=== PATIENT | male | born 1980 | race Caucasian/White ===

== ENCOUNTER → 2018-04-10 14:29 | Outpatient (CLI) | payer OTHER, MEDICAID, SELFPAY ==
[2018-04-10 17:22] LABS: Add Manual Diff / Slide Review NO; Basophils Percent Auto 0.4 % (0-2); Eosinophils Percent Auto 1.4 % (2-4); Hematocrit 45.4 % (41-53); Hemoglobin 14.7 g/dL (13.5-17.5); Lymphocytes Percent Auto 30.6 % (25-40); Mean Corpuscular HGB Conc 32.3 % (30-36); Mean Corpuscular Hemoglobin 28.9 PG (26-34); Mean Corpuscular Volume 89.4 fL (80-100); Monocytes Percent Auto 7.1 % (3-14); Neutrophils Absolute Auto 7600 /uL (3000-5900); Neutrophils Percent Auto 60.5 % (50-75); Platelet Count 328 X10^3/uL (150-400); Red Blood Cell Count 5.08 X10^6/uL (4.5-5.9); Red Cell Distribution Width 14.3 % (11.6-14.8); White Blood Cell Count 12.5 X10^3/uL (4.5-11.0)
[2018-04-10 17:43] LABS: Alanine Aminotransferase 25 IU/L (21-72); Albumin 4.8 g/dL (3.5-5.0); Albumin Globulin Ratio 1.7 (1.0-2.8); Alkaline Phosphatase 78 U/L (38-126); Aspartate Aminotransferase 23 IU/L (17-59); BUN Creatinine Ratio 24.3 (6-22); Bilirubin Total 0.5 mg/dL (0.2-1.3); Blood Urea Nitrogen 17 mg/dL (9-20); Calcium 9.3 mg/dL (8.4-10.2); Carbon Dioxide 29 mmol/L (22-32); Chloride 101 mmol/L (98-107); Estimated Glomerular Filt Rate > 60.0 mL/min (>60); Globulin 2.9 g/dL (1.7-4.1); Glucose 88 mg/dL (70-100); HEMOLYSIS < 15 (0-50); Potassium 3.4 mmol/L (3.4-5.1); Sodium 144 mmol/L (137-145); Total Protein 7.7 g/dL (6.3-8.2)
[2018-04-10 17:53] LABS: Erythrocyte Sedimentation Rate 4 MM/HR (0-15)
[2018-04-10 18:03] LABS: C-Reactive Protein Quant < 0.5 mg/dL (<1.0)
[2018-04-10 18:13] LABS: TSH w/ Reflex to FT4 3.18 uIU/mL (0.47-4.68)
[2018-04-13 08:07] LABS: Beef f27 IgG 11.6 mcg/mL (< 2.0); Casein (f78) IgG 6.5 mcg/mL (< 2.0); Codfish f3 IgG 3.1 mcg/mL (< 2.0); Egg White (f1) IgG < 2.0 mcg/mL (< 2.0); Maize/Corn f8 IgG 14.3 mcg/mL (< 2.0); Orange f33 IgG 2.4 mcg/mL (< 2.0); Peanut f13 IgG < 2.0 mcg/mL (< 2.0); Pork f26 IgG 2.4 mcg/mL (< 2.0); Soybean f14 IgG < 2.0 mcg/mL (< 2.0); Wheat (f4) IgG 5.7 mcg/mL (< 2.0)
[2018-04-13 12:57] LABS: (tTG) Ab, IgA < 1 U/mL
== END ==
PROVIDERS: PCP Nurse Practitioner Family; Visit Provider Physician Assistant
DX: R19.7 Diarrhea, unspecified (principal)
CPT/HCPCS: 36415; 80053; 83516; 84443; 85025; 85651; 86001; 86140; 86255

== ENCOUNTER → 2018-04-11 14:13 | Outpatient (CLI) | payer OTHER, MEDICAID, SELFPAY | PROVIDERS: PCP Nurse Practitioner Family; Visit Provider Physician Assistant | DX: R19.7 Diarrhea, unspecified (principal) | CPT/HCPCS: 86677 ==

== ENCOUNTER 2019-01-18 09:03 | Emergency (ER) | payer OTHER, MEDICAID, SELFPAY ==
[2019-01-18 09:23] VITALS: BP 161/106; PULSE 64; RESP 18; TEMP 37.1; O2SAT 100
[2019-01-18 10:11] LABS: Add Manual Diff / Slide Review NO; Basophils Absolute Auto 0 /uL (0-100); Basophils Percent Auto 0.4 % (0-2); Eosinophils Absolute Auto 0 /uL (0-450); Eosinophils Percent Auto 0.2 % (2-4); Hematocrit 44.1 % (41-53); Hemoglobin 15.1 g/dL (13.5-17.5); INR 1.1 (0.9-1.3); Lymphocytes Absolute Auto 1100 /uL (1100-4500); Mean Corpuscular HGB Conc 34.3 % (30-36); Mean Corpuscular Hemoglobin 29.6 PG (26-34); Mean Corpuscular Volume 86.3 fL (80-100); Monocytes Absolute Auto 400 /uL (0-900); Monocytes Percent Auto 3.9 % (3-14); Neutrophils Absolute Auto 7500 /uL (1500-7000); Neutrophils Percent Auto 83.5 % (50-75); Platelet Count 270 X10^3/uL (150-400); Red Blood Cell Count 5.11 X10^6/uL (4.5-5.9); Red Cell Distribution Width 13.6 % (11.6-14.8)
[2019-01-18 10:13] LABS: PTT Partial Thromboplastin Tim 28 SECONDS (26.4-36.2)
[2019-01-18] MEDS: SODIUM CHLORIDE 0.9% 1,000 ML 1000 ML IV (10:13)
[2019-01-18 10:15] LABS: Alanine Aminotransferase 12 IU/L (21-72); Albumin 4.8 g/dL (3.5-5.0); Albumin Globulin Ratio 1.5 (1.0-2.8); Alkaline Phosphatase 79 U/L (38-126); Aspartate Aminotransferase 22 IU/L (17-59); Bilirubin Total 0.6 mg/dL (0.2-1.3); Blood Urea Nitrogen 12 mg/dL (9-20); Calcium 9.8 mg/dL (8.4-10.2); Carbon Dioxide 25 mmol/L (22-32); Chloride 101 mmol/L (98-107); Estimated Glomerular Filt Rate > 60.0 mL/min (>60); Globulin 3.2 g/dL (1.7-4.1); Glucose 123 mg/dL (70-100); HEMOLYSIS < 15 (0-50); Lipase 62 U/L (23-300); Potassium 3.6 mmol/L (3.4-5.1); Sodium 138 mmol/L (137-145)
--- NOTE | 2019-01-18 10:15 | ED.NAVMDI ---
HPI - Nausea/Vomiting/Diarrhea General Chief complaint: Nausea/Vomiting/Diarrhea Stated complaint: nausea,vomiting Time Seen by Provider: 01/18/19 09:50 Source: patient Mode of arrival: ambulatory Limitations: no limitations History of Present Illness HPI Narrative: Patient is a 38-year-old male presenting with vomiting and abdominal pain ongoing last 5 days. He has a history of pancreatitis and H pylori. He really has been unable to keep anything down he has vomited numerous times daily. No diarrhea. He has not had any fevers. He does take methadone daily for history of heroin abuse which he has been on for number of years. He has not been able to keep his Klonopin down due to the vomiting. MD complaint: nausea, vomiting and abdominal pain Description of Vomiting: watery Description of Diarrhea: none Location of pain: diffuse Related Data Home Medications Medication Instructions Recorded Confirmed methadone PO 04/10/18 04/10/18 temazepam PO 04/10/18 04/10/18 clonazepam 0.5 mg PO BID 01/18/19 01/18/19 mirtazapine 30 mg PO DAILY 01/18/19 01/18/19 Previous Rx's Medication Instructions Recorded ondansetron 4 mg PO Q6-8H PRN #10 tab 01/18/19 Allergies Allergy/AdvReac Type Severity Reaction Status Date / Time No Known Drug Allergies Allergy Verified 04/10/18 13:50 Review of Systems Review of Systems GENERAL: Denies chills, fatigue, malaise, fever, sweats, travel HEENT: Denies sinus pain, ear pain, sore throat, difficulty swallowing, neck pain RESPIRATORY: Denies dyspnea, cough, wheezing, hemoptysis, sputum. CARDIOVASCULAR: Denies chest pain, palpitations, orthopnea, edema GASTROINTESTINAL: See HPI : Denies dysuria, frequency, incontinence, hematuria, urinary retention, flank pain. MUSCULOSKELETAL: Denies weakness, joint pain, or bony pain SKIN: No rash, no erythema, no pruritus NEUROLOGIC: Denies weakness, dizziness, headache, numbness, change in speech, confusion PSYCHIATRIC: No concerning psychosocial issues. 12 point review of systems is negative except for those stated above and HPI [facility] Medical History H. pylori infection (Acute) Heroin abuse (Resolved) Social History Smoking Status: Current every day smoker Social History Smoking Status: Current every day smoker Exam Initial Vital Signs Initial Vital Signs: Vital Signs Temperature 98.8 F 01/18/19 09:23 Pulse Rate 64 01/18/19 09:23 Respiratory Rate 18 01/18/19 09:23 Blood Pressure 161/106 H 01/18/19 09:23 Pulse Oximetry 100 01/18/19 09:23 GENERAL: Well-appearing, well-nourished and in no acute distress. HEENT: Head atraumatic,EOMI, pupils reactive, face symmetric, CARDIOVASCULAR: Regular rate and rhythm without murmurs, rubs or gallops. RESPIRATORY: Breath sounds equal bilaterally, no wheezes rales or rhonchi. ABDOMEN: Soft, diffusely tender, no guarding no rebound : No CVA tenderness EXTREMITIES: Normal range of motion, no clubbing or edema. Neurovascularly intact NEUROLOGICAL: Alert and oriented x4.Normal gait and speech. Cranial nerves II through XII grossly intact. SKIN: Warm, dry, no laceration, no petechiae, no rashes or lesions. Course Orders Ordered: ED Orders 01/18/19 09:55 Complete Blood Count AUTO DIFF Stat Comprehensive Metabolic Panel Stat Lipase Stat Partial Thromboplastin Time Stat Prothrombin Time INR Stat 01/18/19 10:43 XR acute abdomen series Stat Discontinued Medications Sodium Chloride (Normal Saline 0.9%) 1,000 mls @ 1,000 mls/hr IV BOLUS ONE Stop: 01/18/19 10:53 Last Infusion: 01/18/19 11:36 Dose: 0 mls/hr Admin: 01/18/19 10:13 Dose: 1,000 mls/hr Ketorolac Tromethamine (Toradol) 30 mg IV NOW ONE Stop: 01/18/19 10:44 Ondansetron HCl (Zofran) 4 mg IV NOW ONE Stop: 01/18/19 09:23 Last Admin: 01/18/19 10:16 Dose: 4 mg Pantoprazole Sodium (Protonix) 40 mg IV NOW ONE Stop: 01/18/19 09:55 Last Admin: 01/18/19 10:16 Dose: 40 mg Vital Signs - 8 hr 01/18/19 10:26 01/18/19 11:33 Pulse Rate 68 52 L Respiratory Rate 13 10 L Blood Pressure [Left Arm] 113/71 110/61 Pulse Oximetry 95 95 MDM - Nausea/Vomiting/Diarrhea Lab Data Attestation: I reviewed the patient's lab results. Result diagrams: 01/18/19 09:55 01/18/19 09:55 Lab Results 01/18/19 01/18/19 01/18/19 Range/Units 09:55 09:55 09:55 WBC 9.0 (4.5-11.0) X10^3/uL RBC 5.11 (4.5-5.9) X10^6/uL Hgb 15.1 (13.5-17.5) g/dL Hct 44.1 (41-53) % MCV 86.3 (80-100) fL MCH 29.6 (26-34) PG MCHC 34.3 (30-36) % RDW 13.6 (11.6-14.8) % Plt Count 270 (150-400) X10^3/uL Neut % (Auto) 83.5 H (50-75) % Lymph % (Auto) 12.0 L (25-40) % [place] % (Auto) 3.9 (3-14) % Eos % (Auto) 0.2 L (2-4) % Baso % (Auto) 0.4 (0-2) % Neut # (Auto) 7500 H (3714-5587) /uL Lymph # (Auto) 1100 (8206-6249) /uL [place] # (Auto) 400 (0-900) /uL Eos # (Auto) 0 (0-450) /uL Baso # (Auto) 0 (0-100) /uL PT 13.0 H (10.1-12.7) SECONDS INR 1.1 (0.9-1.3) APTT 28 (26.4-36.2) SECONDS Sodium 138 (137-145) mmol/L Potassium 3.6 (3.4-5.1) mmol/L Chloride 101 (98-107) mmol/L Carbon Dioxide 25 (22-32) mmol/L BUN 12 (9-20) mg/dL Creatinine 0.60 L (0.66-1.25) mg/dL Estimated GFR > 60.0 (>60) mL/min BUN/Creatinine Ratio 20.0 (6-22) Glucose 123 H (70-100) mg/dL Calcium 9.8 (8.4-10.2) mg/dL Total Bilirubin 0.6 (0.2-1.3) mg/dL AST 22 (17-59) IU/L ALT 12 L (21-72) IU/L Alkaline Phosphatase 79 (38-126) U/L Total Protein 8.0 (6.3-8.2) g/dL Albumin 4.8 (3.5-5.0) g/dL Globulin 3.2 (1.7-4.1) g/dL Albumin/Globulin Ratio 1.5 (1.0-2.8) Lipase 62 (23-300) U/L Imaging Data Abdominal x-ray: Radiologist's impression: PROCEDURE: XR ACUTE ABDOMEN SERIES INDICATIONS: pain TECHNIQUE: One view chest and two views of the abdomen were acquired. COMPARISON: None. FINDINGS: Surgical changes and devices: None. Chest: Lungs are clear. Heart size is normal. No pleural effusions. No pneumoperitoneum. Abdomen: Bowel gas pattern is normal. No suspicious calcifications. Visualized solid organ contours appear normal. Bones: No suspicious bony lesions. IMPRESSION: Normal for age, source of current abdominal pain symptoms is not seen. Dictated by: Melvin Briones M.D. on 01/18/2019 at 11:34 MDM Narrative Medical decision making narrative: Patient overall is feeling better. Blood work is actually reassuring no electrolyte abnormalities no sign of dehydration. He is tolerating vitamin water. Long discussion with him about diet. He seems to had intestinal issues ongoing for some time. Discharge Plan Departure Patient Disposition: Home Clinical Impression: Gastroenteritis Discharge Date/Time: 01/18/19 11:37 Interventions: ED Discharge Assessment Last Done: 01/18/19 11:37 Instructions: DI for Vomiting -- Adult Activity Restrictions/Additional Instructions: *You have been diagnosed with gastritis *What to do: I do recommend looking into your diet and doing an elimination diet *Continue to take medications as directed, for 2-4 weeks and then reintroduced think food. I feel this may help some of her chronic issues. Zofran 4 mg every 6-8 hours if needed for nausea or vomiting-->SENT TO [facility] IN [place] *Follow up with your primary care provider in 2-3 days *Return to ER if you should have persistent vomiting inability to keep any fluid down or any new, worsening or concerning symptoms Prescriptions: New ondansetron 4 mg tablet,disintegrating 4 mg PO Q6-8H PRN (Reason: nausea and vomiting) Qty: 10 RF: 0 No Action methadone PO RF: 0 temazepam PO RF: 0 clonazepam 0.5 mg tablet 0.5 mg PO BID RF: 0 mirtazapine 30 mg tablet 30 mg PO DAILY RF: 0 Referrals: Jessica Mendiola ARNP [Primary Care Provider] -
[2019-01-18] MEDS: PANTOPRAZOLE 40 MG VIAL IV (10:16)
[2019-01-18] MEDS: ONDANSETRON 4 MG/2 ML INJ IV (10:16)
[2019-01-18 10:26] VITALS: BP 113/71; PULSE 68; RESP 13; O2SAT 95
--- NOTE | 2019-01-18 10:43 | DI.RAD.S_ITS ---
PROCEDURE: XR ACUTE ABDOMEN SERIES INDICATIONS: pain TECHNIQUE: One view chest and two views of the abdomen were acquired. COMPARISON: None. FINDINGS: Surgical changes and devices: None. Chest: Lungs are clear. Heart size is normal. No pleural effusions. No pneumoperitoneum. Abdomen: Bowel gas pattern is normal. No suspicious calcifications. Visualized solid organ contours appear normal. Bones: No suspicious bony lesions. IMPRESSION: Normal for age, source of current abdominal pain symptoms is not seen. Dictated by: Melvin Briones M.D. on 01/18/2019 at 11:34 Approved by: Melvin Briones M.D. on 01/18/2019 at 11:34
[2019-01-18 11:33] VITALS: BP 110/61; PULSE 52; RESP 10; O2SAT 95
== END 2019-01-18 11:37 | disposition home or self-care (01) ==
PROVIDERS: Emergency Provider Emergency Medicine; PCP Nurse Practitioner Family
DX: K52.9 Noninfective gastroenteritis and colitis, unspecified (principal)
CPT/HCPCS: 36415; 74022; 80053; 83690; 85025; 85610; 85730; 96361; 96374; 96375; 99283; 99284; C9113; J2405